=== PATIENT | male | born 2000 ===

== ENCOUNTER 2019-01-08 19:40 | Emergency (ER) | payer OTHER ==
[~2019-01-08] VITALS: Ht 170.2 cm; Wt 56.0 kg
[2019-01-08 19:52] VITALS: BP 121/68
[2019-01-08] MEDS ORDERED: TETanus/Pertussis (Acell)/Diphther VAC/PF (Tdap-Adult) 0.5ml syringe IM ONE (20:15)
== END 2019-01-08 20:49 | disposition home or self-care (01) ==
LOC: ER 19:41
DX: S61.412A Laceration without foreign body of left hand, initial encounter (principal); Z88.1 Allergy status to other antibiotic agents; W25.XXXA Contact with sharp glass, initial encounter; Y93.89 Activity, other specified; Y92.512 Supermarket, store or market as the place of occurrence of the external cause; Y99.9 Unspecified external cause status
CPT/HCPCS: 29125; 90471; 99283